=== PATIENT | female | born 1985 | race Caucasian/White ===

== ENCOUNTER → 2019-02-20 | Outpatient (CLI) | payer BC ==
[2019-02-20 13:19] LABS: Basophils # (A) 0.1 k/uL (0-0.2); Basophils % (A) 1 %; Eosinophils # (A) 0.1 k/uL (0-0.7); Eosinophils % (A) 2 %; HCT 37.8 % (34.0-46.0); HGB 12.9 gm/dL (11.4-16.0); Lymphocytes # (A) 2.2 k/uL (1.0-4.8); Lymphocytes % (A) 34 %; MCH 27.9 pg (25.0-35.0); MCV 82.2 fL (80.0-100.0); Mean Platelet Volume 7.4; Monocytes # (A) 0.2 k/uL (0-1.0); Monocytes % (A) 4 %; Neutrophils # (A) 3.7 k/uL (1.3-7.7); Neutrophils % (A) 59 %; Platelet Count 249 k/uL (150-450); RDW 14.8 % (11.5-15.5); WBC 6.3 k/uL (3.8-10.6)
== END | disposition home or self-care (01) ==
LOC: LABPAT 12:06
PROVIDERS: ATTEND Obstetrics & Gynecology
DX: Z01.812 Encounter for preprocedural laboratory examination (principal)
CPT/HCPCS: 85025

== ENCOUNTER 2019-03-05 06:19 | Day surgery (SDC) | payer BC ==
[2019-03-03 12:18] VITALS: BMI 34.5
[~2019-03-05 06:19] MED LIST: DEXAMETHASONE SOD PHOSPHATE 10 MG/ML 1 ML VIAL IV ONE; HYDROmorphone 0.5 MG/0.5 ML SYRINGE IVP PRN; LACTATED RINGERS 1,000 ML IV SCH; LIDOCAINE 1% 20 ML VIAL (10MG/ML) FOR IV START INTRADERMA PRN; ONDANSETRON 4 MG/2 ML VIAL IVP ONE; Pre Op ABX Message 1 EACH MISC MISCELLANE ONE; SCOPOLAMINE 1.5MG/72HR PATCH TRANSDERM ONE
--- NOTE | 2019-03-05 07:22 | P.HPOB ---
History of Present Illness H&P Date: 03/05/19 Chief Complaint: Family planning Patient is a 33-year-old female who is completed her family planning desires permanent sterilization. Risks/benefits/alternatives to a left scopic tubal occlusion Filshie clips were reviewed with the patient in detail all questions were answered for her prior to proceeding to the operative room. She is aware that there is a chance of failure of approximately 4 per thousand she is also aware that this is a permanent procedure not designed to be reversed. She has a IUD in place and we will plan to remove that at the same time. Possibility we may need to hysteroscopy if we are unable to find the IUD without any difficulties. On physical exam vital signs are stable and afebrile. Heart regular, lungs clear, extremities without pain. Abdomen soft nontender. Positive bowel sounds are noted. Pelvic exam is otherwise unremarkable. Assessment family planning. 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 No significant issues noted on an osteopathic structural exam other than those noted in the History and Physical/Consult. Vital Signs Temp Pulse Resp BP 03/05/19 06:44 97.9 F 84 16 116/74 Intake and Output 03/04/19 03/05/19 03/05/19 22:59 06:59 14:59 Other: Weight 85.729 kg - OBG Physical Exam Breast: both: normal (no masses) Abdomen: bowel sounds normal, no diffuse tenderness, no bruit present, no guarding noted, no hepatomegaly, no splenomegaly, no mass Vulva: both: normal Vagina: normal moisture, no discharge Cervix: no lesion, no discharge Uterus: normal size, normal contour Adnexa: both: normal Anus/Rectum: normal perianal skin, no rectal mass, no hemorrhoids, heme negative
[2019-03-05] MEDS ORDERED: BUPIVACAINE (PF) 0.25% 30 ML VIAL SQ ONE ×2 (07:27→08:07)
[2019-03-05] MEDS ORDERED: fentaNYL (PF) 50 MCG/ML 2 ML AMP ONE (07:28)
[2019-03-05] MEDS ORDERED: PROPOFOL 10 MG/ML 20 ML VIAL IV ONE (07:28)
[2019-03-05] MEDS ORDERED: NEOSTIGMINE 1 MG/ML 10 ML VIAL ONE (07:28)
[2019-03-05] MEDS ORDERED: HYDROmorphone (PF) 1 MG/ML ONE (07:28)
[2019-03-05] MEDS ORDERED: GLYCOPYRROLATE 0.2 MG/ML 2 ML VIAL ONE (07:28)
[2019-03-05] MEDS ORDERED: LIDOCAINE 1% INJ 10MG/ML (20 ML MDV) ONE (07:28)
[2019-03-05] MEDS ORDERED: ROCURONIUM BROMIDE 10 MG/ML 10 ML VIAL IV ONE (07:28)
[2019-03-05] MEDS ORDERED: KETOROLAC 30 MG/ML 1 ML VIAL ONE (07:28)
[2019-03-05] MEDS ORDERED: MIDAZOLAM 2 MG/2 ML VIAL ONE (07:28)
--- NOTE | 2019-03-05 08:22 | P.OP ---
Date of Procedure: 03/05/19 Preoperative Diagnosis: Family planning Postoperative Diagnosis: Same with adhesions incidentally noted Procedure(s) Performed: Laparoscopic bilateral salpingectomy with removal of ParaGard IUD Anesthesia: AXEL Surgeon: Memo Bolaños Estimated Blood Loss (ml): 3 IV fluids (ml): 400 Urine output (ml): 50 Pathology: other (Bilateral fallopian tubes) Condition: stable Disposition: same day Operative Findings: Significant adhesions of the anterior abdominal wall to the anterior uterus which were left alone as was also significant adhesions of her omentum to the anterior abdominal wall. She had no symptoms or complaints this and there is no consent to treat therefore it was left alone. Description of Procedure: Patient was taken to the operating suite where a general anesthetic was found be adequate. She was prepped and draped in the normal sterile fashion and placed in the dorsal lithotomy position. Initially a speculum was inserted into the vagina and into lip of the cervix was identified and grasped with single-tooth tenaculum. Uterus was then sounded to 9 cm and using a ring forceps the IUD was removed without difficulty. Once this was accomplished uterine manipulator was inserted without difficulty other instruments removed and red rubber catheter was used to plate drain the bladder of urine. Gloves were then changed and attention was turned to the abdominal portion procedure were 2 mL of quarter percent Marcaine was injected periumbilically. Through this injected anesthetic a 5 mm skin incision was made and through this incision under direct visualization with an optical trocar and sleeve the camera was inserted. Once peritoneal placement was assured gas was allowed to fully insufflate the abdomen and patient was then placed in steep Trendelenburg position. second port was then placed in the midline through her scar under direct visualization through 5 mm port third port and sleeve were then inserted 8 cm to 10 cm lateral to the umbilicus and thisJust inferior to the umbilicus again under direct visualization through 5 mm port. Observations of the pelvis were then fully completed uterus was then elevated left fallopian tube was identified elevated with a grasper and then using a 5 mm LigaSure the fallopian tube was excised from fimbriated end towards the uterus was done in stepwise fashion with excellent hemostasis throughout the process. This was then removed in a similar fashion the right fallopian tube was excised. Once both tubes were excised instruments were removed and gas was allowed to expel from the abdomen. 5 deep breaths were provided during this process. 4-0 Vicryl was then used to close incision subcuticularly and the remaining 8 mL of local was injected around the incisions. Instrument was then removed removed from the vagina. Sponge, lap, needle counts all correct 2. Patient was then taken to the recovery room in stable and satisfactory condition. Plan - Discharge Summary Discharge Rx Participant: Yes New Discharge Prescriptions: No Action ALPRAZolam [Xanax] 0.25 mg PO Q8HR PRN PRN Reason: Anxiety Discharge Medication List ALPRAZolam [Xanax] 0.25 mg PO Q8HR PRN 03/03/19 [History]
[2019-03-05 08:37] VITALS: TEMP 97.1
[2019-03-05 08:47] VITALS: RESP 18
[2019-03-05 09:35] VITALS: BP 105/73; PULSE 64
== END 2019-03-05 09:47 | disposition home or self-care (01) ==
LOC: OR 06:19
PROVIDERS: ATTEND Obstetrics & Gynecology
DX: Z30.2 Encounter for sterilization (principal); F17.200 Nicotine dependence, unspecified, uncomplicated; N83.8 Other noninflammatory disorders of ovary, fallopian tube and broad ligament
CPT/HCPCS: 81025; 88302; 58661; J2250; J1100; J2710; J2405; J2001; J3010; J1885; J1170; J2704

== ENCOUNTER → 2020-11-17 | Outpatient (CLI) | payer BC ==
--- NOTE | 2020-11-17 15:57 | USB ---
EXAMINATION TYPE: US breast complete BILAT DATE OF EXAM: 11/17/2020 COMPARISON: NONE CLINICAL HISTORY: N64.4 Mastodynia. Findings: All 4 quadrants of both breasts and the retroareolar region and axilla bilaterally were scanned with ultrasound. Normal-appearing lymph nodes are noted in the bilateral axilla. No sonographic correlate for patient's bilateral palpable abnormalities. IMPRESSION: Bilateral diagnostic mammogram is recommended for patient's reported bilateral palpable abnormalities for which there are no sonographic correlates, as per ACR recommendations for patients with palpable abnormalities over the age of 30. BI-RADS 0, incomplete.
== END | disposition home or self-care (01) ==
LOC: RADUSWWP 15:03
PROVIDERS: ATTEND Family Medicine
DX: N64.4 Mastodynia (principal)

== ENCOUNTER → 2020-11-30 | Outpatient (CLI) | payer BC ==
--- NOTE | 2020-11-30 09:30 | MM ---
Reason for exam: clinical finding. History: Patient is nulliparous. Family history of breast cancer in maternal grandmother. Indicated problem(s): pain in both breasts. Physical Findings: Nurse did not find any significant physical abnormalities on exam. MG 3D Diag Mammo W/Cad BEAR Bilateral CC and MLO view(s) were taken. Prior study comparison: November 17, 2020, bilateral US breast BILAT. There are scattered fibroglandular densities. 4mm nodule at 2 o'clock, zone A, corresponds to minimally complicated cyst seen on 11/17/20 ultrasound. These results were verbally communicated with the patient and result sheet given to the patient on 11/30/20. ASSESSMENT: Benign, BI-RAD 2 RECOMMENDATION: Routine screening mammogram of both breasts at age 42. Manage on a clinical basis with regard to lumps. Return sooner if clinically indicated.
== END | disposition home or self-care (01) ==
LOC: RADMAMWWP 06:55
PROVIDERS: ATTEND Family Medicine
DX: N60.01 Solitary cyst of right breast (principal); N60.02 Solitary cyst of left breast
CPT/HCPCS: 77062; 77066

== ENCOUNTER → 2023-02-21 | Outpatient (CLI) | payer BC ==
--- NOTE | 2023-02-21 13:57 | XR ---
3 views right ankle. DATE: 02/21/2023. COMPARISON: None available. MEDICAL HISTORY: Pain after fall. FINDINGS: There is no fracture, subluxation or dislocation. The joint spaces and soft tissues are within normal limits. IMPRESSION: No fracture, subluxation or dislocation.
--- NOTE | 2023-02-21 14:39 | XR ---
EXAMINATION TYPE: XR foot limited RT DATE OF EXAM: 02/21/2023 CLINICAL HISTORY: pain TECHNIQUE: Frontal, lateral images of the right foot are obtained. COMPARISON: None. FINDINGS: There is no acute fracture/dislocation evident. The joint spaces appear within normal schneider its. The overlying soft tissue appears unremarkable. IMPRESSION: There is no acute fracture or dislocation. ICD 10 NO FRACTURE, INITIAL EVALUATION
== END | disposition home or self-care (01) ==
LOC: RADXRMAIN 13:16
PROVIDERS: ATTEND Family Medicine
DX: S93.401A Sprain of unspecified ligament of right ankle, initial encounter (principal); M79.671 Pain in right foot